=== PATIENT | female | born 1995 | race African-American/Black ===

== ENCOUNTER → 2023-11-03 | Outpatient (CLI) | payer OTHER | END | disposition home or self-care (01) | LOC: RADMN 09:52 | PROVIDERS: ATTEND Chiropractor | DX: I05.9 Rheumatic mitral valve disease, unspecified (principal); I49.8 Other specified cardiac arrhythmias; R07.9 Chest pain, unspecified; R00.0 Tachycardia, unspecified | CPT/HCPCS: 93005; 93306 ==